=== PATIENT | female | born 1990 | race Caucasian/White ===

== ENCOUNTER 2019-10-20 07:09 | Inpatient (IN) | payer OTHER ==
[~2019-10-20] VITALS: Ht 165.1 cm; Wt 94.5 kg
[2019-10-20] MEDS ORDERED: NEWBORN KIT ONE ×2 (07:13→10:56)
[2019-10-20] MEDS ORDERED: LIDOCAINE 1%, 20ML ONE (07:13)
[2019-10-20] MEDS ORDERED: OXYTOCIN 30U/ 0.9% NaCL 500ML 500 ML ONE ×2 (07:14→10:55)
[2019-10-20] MEDS ORDERED: MISOPROSTOL 200 MCG TABLET ONE (07:14)
[2019-10-20] MEDS ORDERED: D5%-LACTATED RINGERS 1,000 ML IV SCH (07:43)
[2019-10-20] MEDS ORDERED: OXYTOCIN 30U/ 0.9% NaCL 500ML 500 ML IV ONE (07:43)
[2019-10-20] MEDS: LACTATED RINGERS 1,000 ML IV SCH ×3 (07:55→10:28)
[2019-10-20] MEDS ORDERED: ONDANSETRON 2MG/ML, 2ML IVPush PRN (08:00)
[2019-10-20] MEDS ORDERED: TERBUTALINE 1 MG/ML, 1ML IVPush PRN (08:00)
[2019-10-20] MEDS ORDERED: FENTANYL PF 100 MCG/2ML IVPush PRN (08:00)
[2019-10-20] MEDS ORDERED: TERBUTALINE 1 MG/ML, 1ML SQ PRN (08:00)
[2019-10-20] MEDS ORDERED: CALCIUM CARBONATE 500 MG TAB.CHEW PO PRN (08:00)
[2019-10-20] MEDS ORDERED: FENTANYL PF 100 MCG/2ML IV PRN (08:00)
[2019-10-20 08:13] LABS: MEAN CORPUSCULAR HEMOGLOBIN 31.7 pg (27.0-34.8); MEAN CORPUSCULAR HGB CONC 33.4 g/dL (32.4-35.8); MEAN CORPUSCULAR VOLUME 94.7 fL (80-100); MEAN PLATELET VOLUME 8.3 fL (7.4-10.4); PLATELET COUNT 282 x10^3/uL (130-400); RED BLOOD COUNT 4.44 x10^6/uL (3.82-5.3); RED CELL DISTRIBUTION WIDTH 13.3 % (9.6-15.2)
[2019-10-20 08:31] LABS: MD YES
[2019-10-20 08:33] LABS: <PLATELET ESTIMATE> ADEQUATE; <PLT MORPHOLOGY> NORMAL PLT MORPH; <RBC MORPHOLOGY> NORMAL; BAND#(MANUAL) 1.21 x10^3/uL; BANDS%(MANUAL) 6 % (0-7); LYMPH#(MANUAL) 1.41 x10^3/uL (1-3.4); LYMPHS% (MANUAL) 7 % (22-44); MONOS% (MANUAL) 1 % (2-9); SEG#(MANUAL) 17.37 x10^3/uL (1.8-6.8); SEGS% (MANUAL) 86 % (42-75)
[2019-10-20 08:35] VITALS: BP 126/75
[2019-10-20] MEDS ORDERED: OXYTOCIN 10 UNITS/ML, 1ML ONE (09:58)
[2019-10-20] MEDS ORDERED: FENTANYL PF 100 MCG/2ML ONE (10:43)
[2019-10-20] MEDS ORDERED: METHYLERGONOVINE 0.2 MG/ML IM ONE (10:55)
[2019-10-20] MEDS: OXYTOCIN 30U/ 0.9% NaCL 500ML 500 ML IV SCH ×4 (11:09→21:49)
[2019-10-20] MEDS ORDERED: OXYcodone/APAP 5/325MG TABLET PO PRN ×3 (11:30→12:00)
[2019-10-20] MEDS ORDERED: METHYLERGONOVINE 0.2 MG/ML IM PRN (11:30)
[2019-10-20] MEDS ORDERED: IBUPROFEN 600 MG TABLET ONE (11:31)
[2019-10-20] MEDS: IBUPROFEN 600 MG TABLET PO PRN ×2 (11:34→17:38)
[2019-10-20] MEDS ORDERED: CARBOPROST TROMETHAMINE 250 MCG/ML, 1ML IM PRN (12:00)
[2019-10-20] MEDS ORDERED: GLYCERIN ADULT SUPP PR PRN (12:00)
[2019-10-20] MEDS ORDERED: IBUPROFEN 800 MG TABLET PO PRN (12:00)
[2019-10-20] MEDS ORDERED: IBUPROFEN 600 MG TABLET PO PRN (12:00)
[2019-10-20] MEDS ORDERED: ACETAMINOPHEN 325 MG TABLET PO PRN (12:00)
[2019-10-20] MEDS ORDERED: MISOPROSTOL 200 MCG TABLET PR PRN (12:00)
[2019-10-20] MEDS ORDERED: BISACODYL 10 MG SUPP PR PRN (12:00)
[2019-10-20] MEDS ORDERED: SIMETHICONE 80 MG CHEW TAB PO PRN (12:00)
[2019-10-20] MEDS ORDERED: OXYcodone/APAP 5/325MG TABLET ONE (13:10)
[2019-10-20 14:29] VITALS: BP 125/79
[2019-10-20] MEDS: DOCUSATE 100 MG CAPSULE PO PRN (17:38)
[2019-10-20 18:46] LABS: MEAN CORPUSCULAR HEMOGLOBIN 31.8 pg (27.0-34.8); MEAN CORPUSCULAR HGB CONC 33.8 g/dL (32.4-35.8); MEAN CORPUSCULAR VOLUME 93.9 fL (80-100); MEAN PLATELET VOLUME 8.3 fL (7.4-10.4); PLATELET COUNT 213 x10^3/uL (130-400); RED BLOOD COUNT 3.59 x10^6/uL (3.82-5.3); RED CELL DISTRIBUTION WIDTH 13.6 % (9.6-15.2)
[2019-10-20 19:31] LABS: MD SCAN
[2019-10-20 19:32] LABS: BASOPHILS # (AUTO) 0.01 x10^3/uL (0-0.1); BASOPHILS % (AUTO) 0 % (0-1); EOSINOPHILS % (AUTO) 1 % (1-7); LYMPHOCYTES # (AUTO) 1.63 x10^3/uL (1-3.4); LYMPHOCYTES % (AUTO) 8 % (22-44); MONOCYTES # (AUTO) 0.72 x10^3/uL (0.2-0.8); MONOCYTES % (AUTO) 3 % (2-9); NEUTROPHILS # (AUTO) 18.44 x10^3/uL (1.8-6.8); NEUTROPHILS % (AUTO) 88 % (42-75)
[2019-10-20 19:38] VITALS: BP 107/73
[2019-10-21] MEDS: IBUPROFEN 600 MG TABLET PO PRN ×4 (00:06→20:37)
[2019-10-21 00:35] VITALS: BP 114/77
[2019-10-21 04:09] VITALS: BP 104/71
[2019-10-21] MEDS: OXYTOCIN 30U/ 0.9% NaCL 500ML 500 ML IV SCH ×4 (07:04→17:49)
[2019-10-21 07:56] VITALS: BP 110/71
[2019-10-21] MEDS: PRENATAL VIT/IRON/FA 1 EACH TABLET PO SCH (09:00)
[2019-10-21 19:30] VITALS: BP 111/73
[2019-10-22] MEDS: IBUPROFEN 600 MG TABLET PO PRN ×3 (02:13→14:41)
[2019-10-22] MEDS: OXYTOCIN 30U/ 0.9% NaCL 500ML 500 ML IV SCH ×2 (03:04→03:49)
[2019-10-22 07:48] VITALS: BP 105/72
[2019-10-22] MEDS: PRENATAL VIT/IRON/FA 1 EACH TABLET PO SCH (08:28)
[2019-10-22] MEDS: DOCUSATE 100 MG CAPSULE PO PRN (08:29)
== END 2019-10-22 15:20 | disposition home or self-care (01) | DRG 806 ==
LOC: LDOP 07:09 → EDIP 07:24 → LDIP 07:29 → 2NW 13:52
PROVIDERS: ADMIT Obstetrics & Gynecology Maternal & Fetal Medicine; ATTEND Obstetrics & Gynecology Maternal & Fetal Medicine
PROC: 10E0XZZ Delivery of Products of Conception, External Approach (ICD-10-PCS; principal; 2019-10-20)
PROC: 0KQM0ZZ Repair Perineum Muscle, Open Approach (ICD-10-PCS; 2019-10-20)
PROC: 10D17Z9 Manual Extraction of Products of Conception, Retained, Via Natural or Artificial Opening (ICD-10-PCS; 2019-10-20)
PROC: 3E033VJ Introduction of Other Hormone into Peripheral Vein, Percutaneous Approach (ICD-10-PCS; 2019-10-20)
PROC: 0HQ9XZZ Repair Perineum Skin, External Approach (ICD-10-PCS; 2019-10-20)
PROC: 0UQMXZZ Repair Vulva, External Approach (ICD-10-PCS; 2019-10-20)
DX: O69.1XX0 Labor and delivery complicated by cord around neck, with compression, not applicable or unspecified (principal); N13.30 Unspecified hydronephrosis; Z37.0 Single live birth; O99.89 Other specified diseases and conditions complicating pregnancy, childbirth and the puerperium; Z3A.39 39 weeks gestation of pregnancy; O70.1 Second degree perineal laceration during delivery; Z80.1 Family history of malignant neoplasm of trachea, bronchus and lung; Z82.49 Family history of ischemic heart disease and other diseases of the circulatory system; Z3A.40 40 weeks gestation of pregnancy; O70.0 First degree perineal laceration during delivery
CPT/HCPCS: 36415; 85025; 86592; 86850; 86900; 99285; G0378; J2210; J2590; J7120